=== PATIENT | male | born 1960 | race Caucasian/White ===

== ENCOUNTER 2018-05-22 08:03 | Inpatient (IN) ==
[2018-05-22] MEDS ORDERED: DUONEB (A & A) INH ONE (08:05)
[2018-05-22] MEDS ORDERED: SOLU-MEDROL IV ONE (08:05)
--- NOTE | 2018-05-22 08:05 | PROVIDER DOCUMENTATION ---
HPI-Respiratory General - General Chief Complaint: Shortness of Breath Stated Complaint: RESP DISTRESS Time Seen by Provider: 05/22/18 08:05 Source: patient, family, EMS Allergies/Adverse Reactions: Patient Allergies Allergy/AdvReac Type Severity Reaction Status Date / Time No Known Allergies Allergy Verified 05/22/18 08:33 Home Medications: Home Medication List Medication Instructions Recorded Confirmed Last Taken Type Benztropine [Cogentin] 1 mg PO DAILY 05/22/18 05/22/18 Unknown History Budesonide/Formoterol Fumarate 10.2 gm IH BID 05/22/18 05/22/18 Unknown History [Symbicort 160-4.5 Mcg Inhaler] Furosemide [Lasix] 20 mg PO DAILY 05/22/18 05/22/18 Unknown History Hydrocodone/Acetaminophen [[place] 1 each PO PRN PRN 05/22/18 05/22/18 Unknown History 5-325 Tablet] Iron Carbonyl/Ascorbic Acid 1 each PO DAILY 05/22/18 05/22/18 Unknown History [Icar-C] Losartan Potassium [Cozaar] 25 mg PO DAILY 05/22/18 05/22/18 Unknown History Multivitamin/Iron/Folic Acid 1 each PO DAILY 05/22/18 05/22/18 Unknown History [Centrum Adults Tablet] Olanzapine [Zyprexa] 20 mg PO DAILY 05/22/18 05/22/18 Unknown History Omeprazole [Prilosec] 20 mg PO BID 05/22/18 05/22/18 Unknown History Prednisone 5 mg PO DAILY 05/22/18 05/22/18 Unknown History ROSUVAstatin [Crestor] 20 mg PO DAILY 05/22/18 05/22/18 Unknown History Sucralfate [Carafate] 1 gm PO 4XDAY 05/22/18 05/22/18 Unknown History Tamsulosin [Flomax] 0.4 mg PO BID 05/22/18 05/22/18 Unknown History Tiotropium [place] Inhaler 1 puff INH RTDAILY 05/22/18 05/22/18 Unknown History [Spiriva] - History of Present Illness-Resp Nature of Presenting Problem: Patient has had URI for about 1 week, this morning was awakened from sleep with sudden onset of SOB. Patient admitted for 5 weeks for COPD exacerbation and pneumothorax, then spen 1 month in rehab in [place]. Denies fever/chills/n/v Quality of Pain: reports: none Severity in ED: reports: severe Onset/Duration: reports: just prior to arrival Timing: reports: still present, constant Context: reports: multiple patients with similar complaints, recent URI Exposure: reports: illness exposure Cough Quality/Degree: reports: moderate, productive cough, sputum Current Respiratory Medication Therapy: Initiated A/A rotacaps, Initiated other (home O2 2L) Modifying Factors: improves with: oxygen, rest, sitting upright. worse with: exertion, coughing, deep breath, lying down Associated Symptoms: reports: cough, dizziness, hyperventilating, short of breath, sore throat, sweaty, wheezing Similar Symptoms Previously?: No Recently seen or treated by another doctor?: No Review of Systems - Adult - REVIEW OF SYSTEMS - ADULT Constitutional: reports: no symptoms reported Eyes: reports: no symptoms reported Ears, Nose, Mouth & Throat: reports: no symptoms reported Cardiovascular: reports: no symptoms reported Respiratory: reports: see HPI, chronic cough, cough, dyspnea on exertion, excessive sputum production, shortness of breath, wheezing. denies: hemoptysis , pleurisy Gastrointestinal: reports: no symptoms reported Genitourinary: reports: no symptoms reported Musculoskeletal: reports: no symptoms reported Integumentary: reports: no symptoms reported Neurological: reports: no symptoms reported Psychiatric: reports: no symptoms reported Endocrine: reports: no symptoms reported Hematologic/Lymphatic: reports: no symptoms reported Allergic/Immunologic: reports: no symptoms reported All Other Systems: Reviewed and Negative Past History - Adult - PAST MEDICAL HISTORY-ADULT Review of Records: reports: Old Records Reviewed, Nursing Assessment Review, Medications Reviewed, Social history reviewed & non-contributory. Major Childhood Illnesses: reports: denies history Cardiovascular: reports: denies history Respiratory: reports: denies history Gastrointestinal: reports: denies history Obstetrical/Gynecological: reports: denies history Genitourinary: reports: denies history Musculoskeletal: reports: denies history Neurological: reports: denies history Endocrine/Immune: reports: denies history Other Conditions: reports: denies history - PRIOR SURGERIES/PROCEDURES Surgical/Procedure History: reports: reviewed, not pertinent - IMMUNIZATION STATUS Childhood Immunizations: See Nurse Assessment Flu Vaccine: See Nurse Assessment - FAMILY HISTORY Family History: reviewed, not pertinent - SOCIAL HISTORY Smoking: quit greater than 1 year, secondhand ( smokes, but "not in house") Substance Use: none/never Alcohol Use Frequency: rarely Living Situation: family Physical Exam-General - PHYSICAL EXAM-ADULT Initial Vital Signs Reviewed: Yes - CONSTITUTIONAL General Appearance: severe distress, obese, slow to respond - EYES Eyes: PERRL/EOMI, pink conjunctivae - HEAD, EARS, NOSE, MOUTH & THROAT HENMT: normocephalic/atraumatic, moist mucous membranes, normal ENT inspection - NECK Neck: non-tender, full range of motion, supple, normal inspection - RESPIRATORY Respiratory: chest non-tender, respiratory distress, decreased breath sounds, accessory muscle use, rhonchi, wheezing, dull on percussion - CARDIOVASCULAR Cardiovascular: normal peripheral pulses, no edema, no gallop, no JVD, no murmur , tachycardia - GASTROINTESTINAL (ABDOMEN) Abdominal Exam: normal bowel sounds, non tender, soft - LYMPHATIC Lymphatic: no adenopathy - MUSCULOSKELETAL Back Exam: normal inspection Extremity: normal range of motion, non-tender, normal inspection - SKIN Integumentary: normal turgor, warm/dry, mottled - NEUROLOGIC 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, grossly normal, no motor/sensory deficits - PSYCHIATRIC Psych/Mental Status: normal mood/affect, normal thought content, normal thought process, oriented x 3, anxious Progress - PLAN OF CARE/RESULTS Progress/Plan/Lab Results: Vital Signs - 8 hr 05/22/18 08:29 05/22/18 08:32 05/22/18 09:00 Temperature 101.9 F H Pulse Rate 154 H 151 H 141 H Respiratory Rate 28 H 20 33 H Blood Pressure 91/70 96/63 O2 Sat by Pulse Oximetry 97 98 100 05/22/18 09:03 05/22/18 09:08 05/22/18 09:17 Temperature Pulse Rate 145 H 151 H 133 H Respiratory Rate 32 H 38 H 34 H Blood Pressure 105/78 94/75 O2 Sat by Pulse Oximetry 100 100 99 05/22/18 09:32 05/22/18 09:47 05/22/18 10:00 Temperature Pulse Rate 129 H 121 H 117 H Respiratory Rate 28 H 28 H 28 H Blood Pressure 120/76 106/79 O2 Sat by Pulse Oximetry 98 100 100 05/22/18 10:02 Temperature Pulse Rate 118 H Respiratory Rate 24 Blood Pressure 130/80 O2 Sat by Pulse Oximetry 100 05/22/18 08:23 Influenza Screen - Final Nasopharyngeal Laboratory Results - last 24 hr 05/22/18 05/22/18 05/22/18 08:09 08:09 08:09 PT INR PTT (Actin FS) D-Dimer, Quantitative Specimen Type Sample Site pH pCO2 pO2 HCO3 Base Excess Oxyhemoglobin ABG O2 Sat (Calculated) ABG O2 Saturation ABG Carboxyhemoglobin ABG Methemoglobin Rayo Test A-a O2 Difference Total Hemoglobin Lactate Blood Gas Modality Spontaneous Rate FiO2 % Inspiratory BiPAP Expiratory BiPAP Sodium 137 Potassium 4.8 Chloride 95 L Carbon Dioxide 21 L Anion Gap 21 BUN 13 Creatinine 1.4 H Estimated GFR/1.73 m2 52 BUN/Creatinine Ratio 9 Glucose 221 H Calculated Osmolality 281 Calcium 9.2 Magnesium 1.5 Total Bilirubin 0.31 AST 22 ALT 16 Alkaline Phosphatase 106 Troponin T [id number] Pept 254 H Total Protein 6.5 Albumin 4.6 Globulin 1.9 Albumin/Globulin Ratio 2.4 Plasma Lactate 5.2 H 05/22/18 05/22/18 05/22/18 08:09 08:09 08:09 PT 11.9 INR 0.81 PTT (Actin FS) 29.8 D-Dimer, Quantitative 2.25 H Specimen Type Sample Site pH pCO2 pO2 HCO3 Base Excess Oxyhemoglobin ABG O2 Sat (Calculated) ABG O2 Saturation ABG Carboxyhemoglobin ABG Methemoglobin Rayo Test A-a O2 Difference Total Hemoglobin Lactate Blood Gas Modality Spontaneous Rate FiO2 % Inspiratory BiPAP Expiratory BiPAP Sodium Potassium Chloride Carbon Dioxide Anion Gap BUN Creatinine Estimated GFR/1.73 m2 BUN/Creatinine Ratio Glucose Calculated Osmolality Calcium Magnesium Total Bilirubin AST ALT Alkaline Phosphatase Troponin T 0.070 [id number]-Qbtjmapltcm Pept Total Protein Albumin Globulin Albumin/Globulin Ratio Plasma Lactate 05/22/18 08:35 PT INR PTT (Actin FS) D-Dimer, Quantitative Specimen Type ARTERIAL Sample Site R BRACHIAL pH 7.35 pCO2 37 pO2 83 HCO3 21.3 Base Excess -4.6 L Oxyhemoglobin 95.3 ABG O2 Sat (Calculated) 21.6 ABG O2 Saturation 97.7 ABG Carboxyhemoglobin 1.60 ABG Methemoglobin 0.9 Rayo Test NO A-a O2 Difference 584.0 Total Hemoglobin 16.1 Lactate 5.30 H* Blood Gas Modality BI PAP Spontaneous Rate 20 FiO2 % 100.0 Inspiratory BiPAP 18.0 Expiratory BiPAP 6.0 Sodium Potassium Chloride Carbon Dioxide Anion Gap BUN Creatinine Estimated GFR/1.73 m2 BUN/Creatinine Ratio Glucose Calculated Osmolality Calcium Magnesium Total Bilirubin AST ALT Alkaline Phosphatase Troponin T [id number]-S-Wznfnbtwmae Pept Total Protein Albumin Globulin Albumin/Globulin Ratio Plasma Lactate Orders Category Date Time Status Admit - [facility] Routine AdmDCTranf 05/22/18 10:07 Active Activity - Strict Bedrest ORDERED Care 05/22/18 10:07 Active Elevate Head of Bed DIRECTED Care 05/22/18 10:07 Active Forrest Cath Insertion ORDERED Care 05/22/18 08:06 Active Intake and Output-Strict Q 8-HR ASSESS Care 05/22/18 10:07 Active Nursing- Assist w/ IS as order ORDERED Care 05/22/18 10:07 Active Saline Loc NOW Care 05/22/18 08:07 Active Turn, Cough and Deep Breathe Q2HR Care 05/22/18 10:07 Active Vital Signs Order Q1H Care 05/22/18 10:07 Active CHEST-PORTABLE [RAD] Stat Exams 05/22/18 08:08 Completed CTA [CT ANGIOGRM PULMONARY ARTERIES] [CT] Stat Exams 05/22/18 10:01 Ordered ABG [RESP] Routine Lab 05/22/18 08:35 Completed BLOOD CULTURE [BLDCUL] Stat Lab 05/22/18 08:12 Received COMPREHENSIVE METABOLIC PANEL [CHEM] Stat Lab 05/22/18 08:09 Completed D-DIMER [COAG] Stat Lab 05/22/18 08:09 Completed INFLUENZA SCREEN A/B Stat Lab 05/22/18 08:23 Completed LACTATE, PLASMA [CHEM] Stat Lab 05/22/18 08:09 Completed LACTATE, PLASMA [CHEM] Stat Lab 05/22/18 11:00 Uncollected MAGNESIUM [CHEM] Stat Lab 05/22/18 08:09 Completed PRO B-NATRIURETIC PEPTIDE Stat Lab 05/22/18 08:09 Completed PROTIME WITH INR [COAG] Stat Lab 05/22/18 08:09 Completed PTT [COAG] Stat Lab 05/22/18 08:09 Completed TROPONIN T Stat Lab 05/22/18 08:09 Completed URINALYSIS W/POSS RFLX CULT [URINALYSIS] Stat Lab 05/22/18 08:07 Uncollected 0.9% Sodium Chloride Inj [Ns] 1,000 ml Med 05/22/18 08:06 Discontinued IV 999 mls/hr 0.9% Sodium Chloride Inj [Ns] 1,000 ml Med 05/22/18 08:51 Discontinued IV 999 mls/hr 0.9% Sodium Chloride Inj [Ns] 500 ml Med 05/22/18 08:51 Discontinued IV 999 mls/hr Acetaminophen [Tylenol] Med 05/22/18 10:07 Discontinued 650 mg MS NOW ONE Albuterol 2.5MG/Ipratrop 0.5MG [Duoneb (A & A)] Med 05/22/18 08:05 Discontinued 9 ml INH NOW ONE Levofloxacin 500 mg/D5w [Levaquin 500 mg/D5w] Med 05/22/18 08:30 Active 500 mg in 100 ml IV Q24H Lorazepam [Ativan] Med 05/22/18 08:06 Discontinued 0.5 mg IV NOW ONE Methylprednisolone Sod Succ [Solu-Medrol] Med 05/22/18 08:05 Discontinued 125 mg IV NOW ONE Piperacillin/Tazobactam [Zosyn] 3.375 gm Med 05/22/18 08:28 Discontinued 0.9% Sodium Chloride Inj [Ns] 50 ml IV NOW Vancomycin 1 gm/Ns Med 05/22/18 08:28 Discontinued 1 gm in 250 ml IV NOW Aerosol Treatments Routine Oth 05/22/18 08:06 Completed Aerosol Treatments Routine Ot 05/22/18 10:07 Active Aerosol Treatments Stat Oth 05/22/18 08:06 Completed BIPAP Stat Oth 05/22/18 08:07 Active Incentive Spirometer Routine Oth 05/22/18 10:07 Active Oxygen Device Routine Oth 05/22/18 10:07 Active Pulse Oximetry Routine Oth 05/22/18 10:07 Active EKG [EKG] Stat Ther 05/22/18 08:07 Draft Transfer/Admit Order [TRANSFER] Routine Transfer 05/22/18 10:06 Ordered Result Diagrams: 05/22/18 08:09 - REASSESSMENT Reassessment #1 Time Reassessed: 10:19 Status: improving (Patient placed on bipap, is septic, 30ml/kg bolus done. Appropriate antibiotics given. Given also 3 duonebs, solu-medrol, small dose of ativan.) - CONSULTS/PCP/HOSPITALIST Notification #1 *Consult/PCP/Hospitalist*: AJITH Mullen Time Discussed: 10:20 (admit to [facility]?) Consult Disposition: Will see in ED Departure - Departure Date of Disposition Decision: 05/22/18 Time of Disposition Decision: 10:06 DIAGNOSIS: Respiratory distress, COPD with exacerbation RLL pneumonia Qualifiers: Pneumonia type: due to unspecified organism Qualified Code(s): J18.1 - Lobar pneumonia, unspecified organism Disposition: ADMITTED INPATIENT 09 Certified Medical Emergency: Emergent Condition: Fair Referrals and Follow-Ups: Levi Martinez Jr, MD [Primary Care Provider] - - Critical Care Note This patient required my direct & personal management of CC.: Yes Total Time (mins): 50 Critical Care Statement: This patient required my direct personal management to treat or rule out processes, the absence of which, could potentiallly result in sudden, clinically significant life or limb threatening deterioration. Attestation - Physician/ JOCELIN Attestation Patient care was provided by Advanced Practice Provider:: No The physician spent face to face time with patient:: Yes Advanced Practice Provider documentation review:: Supervising physician onsite and consulted in the evaluation and care of this patient. The physician did have a face to face encounter with the patient.
[2018-05-22] MEDS ORDERED: NS 1,000 ML IV ONE ×2 (08:06→08:51)
[2018-05-22] MEDS ORDERED: ATIVAN IV ONE (08:06)
--- NOTE | 2018-05-22 08:27 | Diag Imaging Result Doc PS360 ---
EXAM: CHEST-PORTABLE HISTORY: sob TECHNIQUE: Chest single view COMPARISON: 02/03/2018 FINDINGS: The lungs are well expanded. There are infiltrates in the lower lungs, right greater than left. No cardiomegaly. No vascular distention. Questionable trace right pleural fluid. Old injury to the right clavicle. Interval removal of the right-sided PICC line. IMPRESSION: Basilar pneumonia Electronically signed by Juan Aguilar 05/22/2018 8:25 AM
[2018-05-22] MEDS ORDERED: ZOSYN 3.375 GM in NS 50 ML IV ONE (08:28)
[2018-05-22] MEDS ORDERED: VANCOMYCIN 1 GM/NS 1 GM/250 ML IVPB IV ONE (08:28)
--- NOTE | 2018-05-22 08:29 | EKG Report ---
Test Performed on : 05/22/2018 08:13:31 AM Test Reason : SOB Blood Pressure : / mmHG Vent. Rate : 158 BPM Atrial Rate : 144 BPM P-R Int : 000 ms QRS Dur : 074 ms QT Int : 244 ms P-R-T Axes : 035 080 001 degrees QTc Int : 395 ms Undetermined rhythm Nonspecific ST abnormality Abnormal ECG When compared with ECG of 18-JAN-2018 07:27, Current undetermined rhythm precludes rhythm comparison, needs review Unconfirmed Result
[2018-05-22 08:37] LABS: INR 0.81; PROTIME 11.9 Seconds (11.0-16.0); PTT 29.8 Seconds (22.3-41.8)
[2018-05-22 08:42] LABS: ALLEN TEST NO; BE -4.6 mmoll (-3.0-3.0); BLOOD TYPE ARTERIAL; HCO3-(ACT) 21.3 mmoll (20.0-26.0); METHB 0.9 % (0.0-1.5); O2(CT) 21.6 mL/dL (15.0-23.0); O2HB 95.3 % (95.0-99.0); PCO2(98.6) 37 mmHg (35-45); PO2(98.6) 83 mmHg (60-100); SAMPLE BLOOD; SAO2 97.7 % (95.0-100.0); SRATE 20 BPM; THB 16.1 g/dL (11.5-17.4); pH(98.6) 7.35 (7.35-7.45)
[2018-05-22 08:45] LABS: ALB/GLOB RATIO 2.4; ALBUMIN 4.6 g/dL (3.5-5.0); CALCIUM 9.2 mg/dL (8.8-10.2); CREATININE 1.4 mg/dL (0.7-1.2); MAGNESIUM 1.5 mg/dL (1.5-2.7); POTASSIUM 4.8 mmol/L (3.5-5.1); TOTAL BILIRUBIN 0.31 mg/dL (0.20-1.00); TOTAL PROTEIN 6.5 g/dL (6.3-8.3)
[2018-05-22 08:51] LABS: MODALITY BI PAP
[2018-05-22] MEDS ORDERED: NS 500 ML IV ONE (08:51)
[2018-05-22] MEDS ORDERED: TYLENOL PR ONE (10:07)
--- NOTE | 2018-05-22 10:15 | ED EKG INTERP ---
This chart was entered by Mary Kate Avilez Scribe, acting as scribe for Juan J Malik MD. EKG Interpretation - EKG Time of EKG reading by physician:: 08:13 EKG Read and Signed by:: Juan J Malik Rate: 158 Rhythm: sinus tachycardia ST Wave: non-specific ST changes Attestation - Physician/ JOCELIN Attestation Patient care was provided by Advanced Practice Provider:: No The physician spent face to face time with patient:: Yes Advanced Practice Provider documentation review:: Supervising physician onsite and consulted in the evaluation and care of this patient. The physician did have a face to face encounter with the patient. This chart was documented by the indicated scribe, (Mary Kate Avilez Scribe) and accurately reflects the services I performed and decisions made by King laws Kent A., MD, as attested by the provider's signature.
[2018-05-22] MEDS ORDERED: XOPENEX NEB INH PRN (10:22)
[2018-05-22] MEDS ORDERED: XOPENEX NEB ONE (10:33)
[2018-05-22] MEDS: XOPENEX NEB INH SCH ×4 (11:08→23:40)
[2018-05-22] MEDS: LEVAQUIN 500 MG/D5W 500 MG/100 ML IVPB IV SCH (11:11)
[2018-05-22] MEDS: NS 1,000 ML IV SCH ×2 (11:11→19:58)
[2018-05-22] MEDS: PROTONIX IV SCH (11:11)
--- NOTE | 2018-05-22 12:04 | SEPSIS: TISSUE PERFUSION ASSMT ---
Sepsis: Tissue Perfusion Assmt - Physical Exam Assessment Date: 05/22/18 Time Assessment Initialized: 12:03 Vital Signs: Last Vital Signs Temp 101.9 F H 05/22/18 08:29 Pulse 118 H 05/22/18 10:18 Resp 21 05/22/18 10:18 BP 118/86 05/22/18 10:18 Pulse Ox 99 05/22/18 10:18 Height 5 ft 6 in Weight 80.739 kg Lung Sounds:: diminished Heart Sounds:: Regular Capillary Refill Time: Less Than 2 Seconds Peripheral Pulse Evaluation:: radial (R): 2+, radial (L): 2+ Skin Exam:: pink - Impression Impression:: Tissue Perfusion Adequate - Plan Plan:: See Orders (will d/c BiPap)
--- NOTE | 2018-05-22 12:24 | Diag Imaging Result Doc PS360 ---
EXAM: CT ANGIOGRM PULMONARY ARTERIES INDICATION: respiratory distress TECHNIQUE: This exam was performed using automated exposure control, adjustment of mA or kV according to patient size, and/or use of iterative reconstruction technique. Thin section axial images and 3-D MIPS were obtained. COMPARISON: 01/03/2018 FINDINGS: There is no evidence of pulmonary embolism. There is mild aortic atherosclerotic disease. There is no evidence of aortic aneurysm or dissection. There are a few mildly prominent mediastinal and right hilar lymph nodes that are probably reactive. There are faint calcifications associated with a few subcarinal lymph nodes suggesting prior granulomatous disease. There is trace pericardial fluid. There is no cardiomegaly. There are stable emphysematous changes. There is airspace infiltrate in the right lower lung zone including the inferior right upper lobe and right lower lobe. This is worst at the right middle lobe where the consolidation is very dense. Atelectasis may also be contributing to the density in the right middle lobe. There is mild scarring in the lingula and left lung base. There is no significant pleural fluid and there is no pneumothorax. There is a stable calcified granuloma at the posterior aspect of the right lower lobe. IMPRESSION: 1.COPD changes. 2.Airspace consolidation involving the right lower lung zone that is most severe in the right middle lobe indicating pneumonia. 3.No evidence of pulmonary embolism. 4.Other incidental/nonacute findings detailed above. Electronically signed by Mo May 05/22/2018 12:22 PM
[2018-05-22 13:02] LABS: CALCIUM 7.9 mg/dL (8.8-10.2); CREATININE 1.5 mg/dL (0.7-1.2); POTASSIUM 5.1 mmol/L (3.5-5.1)
[2018-05-22] MEDS ORDERED: SOLU-MEDROL IV SCH (13:15)
[2018-05-22 13:24] LABS: URINE SOURCE CLEAN CATCH
[2018-05-22 13:29] LABS: BILIRUBIN URINE NEGATIVE (NEGATIVE); BLOOD URINE NEGATIVE (NEGATIVE); COLOR YELLOW; GLUCOSE URINE NEGATIVE (NEGATIVE); KETONE URINE NEGATIVE (NEGATIVE); LEUKOCYTES URINE NEGATIVE (NEGATIVE); NITRITE URINE NEGATIVE (NEGATIVE); PH URINE 6.5; PROTEIN URINE 50 mg/dL (NEGATIVE); SP GRAVITY URINE 1.045; TURBIDITY URINE CLEAR (CLEAR); UR EPITHELIAL CELLS >10 /HPF (<10); URINE BACTERIA NEGATIVE /HPF; URINE RBC <10 /HPF (<10); URINE WBC <10 /HPF (<10); UROBILINOGEN URINE NORMAL (NORMAL)
[2018-05-22 13:31] LABS: ALLEN TEST YES; BE -4.8 mmoll (-3.0-3.0); BLOOD TYPE ARTERIAL; HCO3-(ACT) 21.2 mmoll (20.0-26.0); METHB 1.6 % (0.0-1.5); MODALITY BI PAP; O2(CT) 18.7 mL/dL (15.0-23.0); O2HB 96.3 % (95.0-99.0); PCO2(98.6) 38 mmHg (35-45); PO2(98.6) 168 mmHg (60-100); SAMPLE BLOOD; SAO2 99.3 % (95.0-100.0); SRATE 20 BPM; THB 13.6 g/dL (11.5-17.4); pH(98.6) 7.34 (7.35-7.45)
--- NOTE | 2018-05-22 13:31 | HISTORY AND PHYSICAL ---
PRIMARY CARE PHYSICIAN: Levi Martinez Jr. CHIEF COMPLAINT: Dyspnea. HISTORY OF PRESENT ILLNESS: Mr. Crowe is a 58-year-old, male, who was most recently admitted to our service in December of last year. At that time, he had spontaneous pneumothorax with acute respiratory failure requiring intubation. He also has a history of COPD, type 2 diabetes and hypertension. He has been in his normal state of health up until this morning when he woke up with acute shortness of breath - enough to bring him into the ER. He states that yesterday there were no issues. No real acute shortness of breath. This morning he came to the ER for evaluation. He was noted to be febrile, tachycardic and hypoxic. He was subsequently placed on BiPAP. Chest x-ray revealed a right middle and lower lobe pneumonia. Lactic acid was also noted to be elevated, giving him criteria for sepsis. A subsequent CT thorax revealed right lower and right middle lobe pneumonia. As such, he is going to be admitted for sepsis and pneumonia. PAST MEDICAL HISTORY: 1. History of respiratory failure secondary to spontaneous pneumothorax requiring intubation. 2. COPD. 3. Hypertension. 4. Type 2 diabetes. 5. Hyperlipidemia. PAST SURGICAL HISTORY: None. SOCIAL HISTORY: He quit in December. He has a long and extensive smoking history. He denies alcohol or drug use. He is . His is currently not at the bedside. FAMILY HISTORY: Noncontributory. REVIEW OF SYSTEMS: A 14 point review of systems obtained and found to be negative with the exception of the HPI. PHYSICAL EXAM: VITAL SIGNS: Blood pressure is 97/69, heart rate is 100, respiratory rate is 23. O2 saturation 100% on BiPAP. Temperature is 99.1 degrees Fahrenheit. GENERAL: This chronically ill and overweight appearing 58-year-old, male, lying in hospital bed in [id number] respiratory distress. NEUROLOGIC: He is oriented. No focal deficits. HEENT: Head: Normocephalic and atraumatic. Pupils are equal, round and reactive to light. Oral mucosa is dry. NECK: Trachea is midline. CHEST: Very little air movement bilaterally with crackles over the right middle and lower lobes. CARDIOVASCULAR: Tachy and regular. S1, S2 is noted. GASTROINTESTINAL: Soft, nontender, nondistended. Bowel sounds active. EXTREMITIES: No edema. Pulses 1+ bilaterally. DIAGNOSTIC DATA: 1. Chest x-ray shows basilar pneumonia. 2. CTA of the chest is negative for PE. Right middle and lower lung pneumonia. COPD changes were also noted. 3. CBC is pending due to hemolysis. 4. PT 11.9. INR 0.81. D-dimer 2.25. 5. ABG on BiPAP: pH 7.35, CO2 37, O2 83, bicarb 21.3. Lactic acid 5.3. 6. Sodium 137, potassium 4.8, chloride 95, CO2 21. Anion gap 21. BUN 13, creatinine 1.4, glucose 221. 7. LFTs normal. Troponin negative. ProBNP 254. Lactic acid 5.2. ASSESSMENT AND PLAN: 1. Acute hypoxic respiratory failure: Secondary to pneumonia. He is on BiPAP. We will continue with aggressive pulmonary toilet, breathing treatments, broad-spectrum antibiotics with MRSA overage. We will order sputum cultures. Consult Pulmonology. Check daily chest x-rays. Repeat ABGs. 2. Sepsis secondary to pneumonia: He is becoming slightly hypotensive. Lactic acid repeat is pending. We will continue with fluid resuscitation as necessary. Add pressors if needed. Continue to trend his lactic acid and follow culture data of the urine, blood and sputum. 3. Mild acute kidney injury: Continue IV fluids. Avoid nephrotoxins. Monitor response. 4. Diabetes mellitus. Will add sliding-scale insulin, PBS. Check hemoglobin A1c. 5. Deep venous thrombosis prophylaxis. We will add Lovenox. Further recommendations to follow. Dictated by AJITH Camara for Edwar Morin MD Patient seen and examined by me face to face, all the laboratory, vitals signs and images were reviewed, Patient came in today due to respiratory failure, he has a history of COPD, he is hypoxemic as well, he has been placed on steroids, breathing treatment, O2, antibiotics, and currently is on the BiPAP machine, his is at the bedside, images showed right lower lobe pneumonia, pulmonary department will be on board, upon examination this patient is alert but he looks tired, decrease breath sounds mostly on the right base with rhonchi, I agree with the EP TECHNOLOGIST's assessment and plan, Edwar Murcia. cc: AJITH Camara MD Levi Cale Martinez, Jr, MD [facility]
[2018-05-22] MEDS: LOVENOX SUBQ SCH (13:33)
[2018-05-22] MEDS: SOLU-MEDROL IV SCH ×2 (13:36→22:00)
[2018-05-22] MEDS: MAXIPIME 2 GM in NS 100 ML IV SCH (13:54)
[2018-05-22] MEDS: ZYVOX 600 MG/D5W 600 MG/300 ML IVPB IV SCH (15:18)
[2018-05-22] MEDS: HUMULIN R SUBQ SCH ×2 (16:46→21:32)
[2018-05-22 18:30] LABS: BASO# 0.01 X1000 (0.0-0.2); HEMATOCRIT 40.2 % (42.0-52.0); HEMOGLOBIN 12.5 g/dL (14.0-18.0); IMM GRAN# 0.06 X1000 (0.0-0.04); IMM GRAN% 0.3 % (0.0-0.5); LYMPH# 0.48 X1000 (1.2-3.4); LYMPH% 2.3 % (20.5-51.1); MCH 28.4 PG (27-31); MCHC 31.1 g/dL (33-37); MCV 91.4 FL (81-99); MONO# 0.59 X1000 (0.11-0.59); MONO% 2.9 % (1.7-9.3); MPV 11.8 FL (7.4-10.4); NEUT# 19.29 X1000 (1.4-6.5); NEUT% 94.5 % (42.2-75.2); PLT 177 X1000 (130-400); RDW 14.9 % (11.5-14.5); WBC 20.43 X1000 (4.8-10.8)
[2018-05-22] MEDS ORDERED: NS 1,000 ML ONE (19:57)
--- NOTE | 2018-05-23 00:52 | PULMONOLOGY CONSULTATION ---
DATE: 05/22/2018 REQUESTING PHYSICIAN: Edwar Morin MD. REASON FOR CONSULTATION: Pneumonia and possible sepsis. HISTORY OF PRESENT ILLNESS: Mr. Crowe is a 58-year-old white male with severe COPD (stopped smoking last fall), prior admission to the hospital with spontaneous pneumothorax, who received amoxicillin in early April for cough and sputum production. He did improve, but over the last several days, his shortness of breath has increased. He is unclear if he has had any fevers. The patient presented to the emergency room with a temperature of 101.9 degrees. Chest x-ray revealed dense right basilar infiltrate with possible infiltrate on the left. He underwent a CT pulmonary angiogram,which reveals COPD and pneumonia, predominantly in the right middle lobe but also in the right lower lobe. No evidence of pulmonary emboli was identified. The patient's blood pressure has been marginal. PAST MEDICAL HISTORY/PROBLEM LIST: 1. Severe COPD with chronic hypoxemic respiratory failure. 2. Obesity. 3. Hypertension. 4. Type 2 diabetes mellitus. 5. Dyslipidemia. 6. Tension pneumothorax, status post chest tube placement in December. SOCIAL HISTORY: Stopped smoking last fall. Denies alcohol use. FAMILY HISTORY: Noncontributory to current presentation. REVIEW OF SYSTEMS: As noted in the HPI and was otherwise negative. PHYSICAL EXAMINATION: General: Physical exam reveals an obese white male who appears older than his stated age, currently on BiPAP ventilation. Vital signs: BP 104/68, heart rate 89, respiratory rate 21, oxygen saturation 100%. HEENT: Pupils are equal and reactive. Oropharynx is clear. Neck: Supple. Chest: Reveals diminished breath sounds, right base, with some egophony. Cardiac: S1, S2. Abdomen: Obese and soft. Extremities: Reveal trace edema. LABORATORIES: CBC not available. It was pending earlier but still not available for review. Arterial blood gas: pH 7.34, pCO2 of 38, pO2 of 168 on 50% FiO2. Lactate 3.9. Sodium 139, potassium 5.1, chloride 102, bicarbonate 23, BUN 14, creatinine 1.5. Blood cultures are pending. IMPRESSION: A 58-year-old with chronic obstructive pulmonary disease, community-acquired pneumonia, acute hypoxemic respiratory failure, lactic acidosis, acute renal insufficiency and subsequent exposure to contrast dye. The patient's pulmonary status is marginal. He is at risk for progressive respiratory decline as well as acute renal failure. RECOMMENDATION: 1. Agree with broad spectrum antibiotics. 2. Continue BiPAP. If he fails this modality, he may require intubation. 3. Continue IV fluids. 4. Anticipate transfer to the intensive care unit when a bed is available. 5. Prognosis is guarded. cc: Benny Aguillon MD
[2018-05-23] MEDS: MAXIPIME 2 GM in NS 100 ML IV SCH ×2 (02:45→17:00)
[2018-05-23] MEDS: ZYVOX 600 MG/D5W 600 MG/300 ML IVPB IV SCH ×2 (02:48→17:30)
[2018-05-23] MEDS: XOPENEX NEB INH SCH ×6 (03:42→23:31)
[2018-05-23] MEDS: NS 1,000 ML IV SCH ×3 (04:00→18:03)
[2018-05-23 05:34] LABS: ALLEN TEST YES; BE -5.4 mmoll (-3.0-3.0); BLOOD TYPE ARTERIAL; HCO3-(ACT) 20.7 mmoll (20.0-26.0); METHB 1.3 % (0.0-1.5); O2(CT) 15.8 mL/dL (15.0-23.0); O2HB 96.5 % (95.0-99.0); PCO2(98.6) 33 mmHg (35-45); PO2(98.6) 118 mmHg (60-100); SAMPLE BLOOD; SAO2 99.7 % (95.0-100.0); THB 11.5 g/dL (11.5-17.4); pH(98.6) 7.37 (7.35-7.45)
[2018-05-23 05:35] LABS: MODALITY BI PAP
[2018-05-23] MEDS: SOLU-MEDROL IV SCH ×3 (06:20→22:56)
[2018-05-23 06:38] LABS: BASO# 0.01 X1000 (0.0-0.2); HEMATOCRIT 35.8 % (42.0-52.0); HEMOGLOBIN 11.3 g/dL (14.0-18.0); IMM GRAN# 0.06 X1000 (0.0-0.04); IMM GRAN% 0.3 % (0.0-0.5); LYMPH# 0.74 X1000 (1.2-3.4); LYMPH% 3.6 % (20.5-51.1); MCH 28.5 PG (27-31); MCHC 31.6 g/dL (33-37); MCV 90.2 FL (81-99); MONO# 0.67 X1000 (0.11-0.59); MONO% 3.2 % (1.7-9.3); MPV 11.6 FL (7.4-10.4); NEUT# 19.31 X1000 (1.4-6.5); NEUT% 92.9 % (42.2-75.2); PLT 171 X1000 (130-400); RBC 3.97 XMIL (4.7-6.1); RDW 14.9 % (11.5-14.5); WBC 20.79 X1000 (4.8-10.8)
[2018-05-23 06:56] LABS: LYMPHS 6 % (21-51); MONO 2 % (1-9); SEGS 92 % (42-75)
[2018-05-23 06:58] LABS: HEMOGLOBIN A1C 5.9 % (4.8-6.0)
[2018-05-23 07:00] LABS: CALCIUM 8.5 mg/dL (8.8-10.2); CREATININE 1.3 mg/dL (0.7-1.2); POTASSIUM 4.4 mmol/L (3.5-5.1)
--- NOTE | 2018-05-23 07:19 | Diag Imaging Result Doc PS360 ---
EXAM: CHEST-PORTABLE INDICATION: pna, resp failure TECHNIQUE: 2 views COMPARISON: 05/22/2018 FINDINGS: Bibasilar consolidations, worse on the right are again noted. The density at the right lung base has slightly increased. This is likely due to increased pleural fluid. No other new consolidations are identified. Cardiac silhouette is stable. IMPRESSION: Increased opacity at the right lung base as described. Electronically signed by Mo May 05/23/2018 7:17 AM
[2018-05-23] MEDS: HUMULIN R SUBQ SCH ×4 (07:32→22:55)
--- NOTE | 2018-05-23 09:41 | PROGRESS NOTE ---
DATE: 05/23/2018 SUBJECTIVE: This patient is still on the BiPAP machine. I will start cycling the BiPAP machine with a nonrebreathing mask or nasal cannula. I will decrease the dose of the steroids since he is not wheezing that much today, actually just fine end-expiratory wheezing. He is not complaining of shortness of breath. He does have a right lower lung pneumonia. Will continue with broad- spectrum antibiotics. OBJECTIVE: Vital Signs: Temperature 97.9 degrees, pulse 85, respiratory rate 17, blood pressure 116/67, oxygen saturation 98% on the BiPAP machine. HEENT: Head normocephalic. No trauma. PERRLA. Neck: Supple. No JVD. No masses. Central trachea. Chest: Decreased breath sounds globally with prolonged expiratory phase. Decreased breath sounds at the right base with end- expiratory wheezing. Rhonchi at the right base as well. Abdomen: Soft, nontender, nondistended. No hepatosplenomegaly. Obese, protuberant. Extremities: No edema. No clubbing. No cyanosis. Neurological: The patient is alert. He is following commands. He is oriented. No focal deficits. LABORATORY DATA: WBC 20.7, hemoglobin 11.3, hematocrit 35.8, platelets 171,000. Sodium 138, potassium 4.4, chloride 105, bicarbonate 19, BUN 18, creatinine 1.3, glucose 216, calcium 8.5, magnesium 1.5. IgG is low at 439. ASSESSMENT AND PLAN: 1. Acute hypoxemic respiratory failure, likely secondary to pneumonia and history of chronic obstructive pulmonary disease. Continue with cycling the BiPAP machine with nasal cannula and/or nonrebreathing mask/Ventimask. Pulmonary Department on board. I think he is getting better. 2. Sepsis secondary to pneumonia, right lower lung pneumonia. Continue with broad-spectrum antibiotics, oxygen supplementation, pulmonary toilet, and breathing treatment. 3. Right lower lobe pneumonia. As above. 4. Mild acute kidney injury. Continue with same management. Avoid nephrotoxic medication. 5. Type 2 diabetes. Continue with sliding scale insulin and patterning blood sugar. His hemoglobin A1c actually is 5.9. Probably the elevated blood sugar is due to steroids. 6. Obesity with a body mass index of 28.7, aware. Diet and exercise has been discussed. 7. Hypogammaglobulinemia. IgG and IgM levels are low. I have requested an evaluation by Infectious Disease Department. Likely he will need to get an immunoglobulin treatment, IVIg. 8. Lactic acidosis. Continue with the same management. cc: Edwar Morin MD
[2018-05-23] MEDS: LEVAQUIN 500 MG/D5W 500 MG/100 ML IVPB IV SCH (09:59)
[2018-05-23] MEDS: SODIUM CHLORIDE 0.9% INJ SCH (11:15)
[2018-05-23] MEDS: PROTONIX IV SCH (11:15)
[2018-05-23] MEDS ORDERED: GAMUNEX-C 10% IV ONE (12:00)
--- NOTE | 2018-05-23 12:02 | INFECTIOUS DISEASE CONSULT REP ---
DATE: 05/23/2018 CONCLUSION: The patient is admitted the hospital with right lower lobe pneumonia. He also has an immunoglobulin deficiency. RECOMMENDATIONS: I agree with treating the patient with Zyvox and Levaquin. I am planning on giving the patient an immunoglobulin infusion. I have ordered also a sputum for Gram stain and culture, as well as I plan to give the patient an immunoglobulin infusion. DISCUSSION: The patient approximately 2 days ago had the sudden onset of increasing dyspnea and fever. He has not brought up much sputum. He has not had shaking chills. His CBC shows a white count of 20,790, hemoglobin 11.3, and platelet count 171,000. Blood gases show a pH of 7.37, a PO2 of 118, and a pCO2 of 33. Creatinine is 1.3; GFR is 56. Liver function studies are normal. IgG is 439, IgA is 111. Chest x-ray shows a right lower lobe pneumonia. Swab for influenza is negative. Blood cultures are negative thus far. PAST MEDICAL HISTORY/REVIEW OF SYSTEMS: Eyes and Ears: The patient denies any trouble hearing or seeing. Neck: No stiffness. Respiratory: See present illness. Cardiac: No chest pain or palpitations. Gastrointestinal: No nausea, vomiting, or diarrhea. Genitourinary: No dysuria or flank pain. Bones, Joints, Muscles: No joint swelling or muscle aching. Neurologic: No seizures. No recent loss of motor or sensory function. PREVIOUS HOSPITALIZATIONS AND OPERATIONS: He was admitted with a tension pneumothorax and then developed an aspiration pneumonia. Another time he was admitted because of hypokalemia. MEDICAL DISEASES: Positive for chronic obstructive pulmonary disease; diabetes mellitus, which cleared for a period of time and now it the appears to have returned. The patient also is obese. He has hyperlipidemia, schizophrenia, and hypertension. INFECTIOUS DISEASE HISTORY: Positive for pneumonia. Negative for UTI. FAMILY HISTORY: Positive for diabetes mellitus, hypertension, and cancer. SOCIAL HISTORY: [place] He is . He does not have any pets at home. He stopped smoking cigarettes in December 2017. He does not drink alcoholic beverages or abuse drugs. ALLERGIES: His chart lists no known drug allergies. HOME MEDICATIONS: Include the following: Cogentin, Symbicort inhaler, Lasix, hydrocodone, Cozaar, vitamins, Zyprexa, Prilosec, prednisone, Crestor, Carafate, Flomax, Spiriva. PHYSICAL EXAMINATION: Vital Signs: Temperature is 97.9 degrees, pulse 85, respirations 7, blood pressure 116/67. Height and Weight: The patient is 5 feet 6 inches tall, weighs 178 pounds. General: This is an ill-appearing middle-aged male. He seems to be having acute respiratory distress. Head/Eyes/Ears/Nose/Throat: He can hear my spoken words and see near objects. His sinuses are not tender. His tongue does not have any white patches on it. Neck: No meningismus. Thorax: Patient has increased AP diameter of his chest. Lungs: Clear to auscultation. Cardiovascular: Regular heart rate. Abdomen: Soft and nontender. Neurologic: The patient is awake. He can move his extremities. There is no tremor. His sensation is intact to touch. His memory as regarding his medical history seemed to be reduced. Integument: No rash noted. cc: Jose Cruz Hall MD
[2018-05-23] MEDS: LOVENOX SUBQ SCH (17:00)
[2018-05-23 17:49] LABS: AGAP 14; BUN 20 mg/dL (8-22); CALCIUM 8.7 mg/dL (8.8-10.2); CHLORIDE 103 mmol/L (98-107); COSMO 279; CREATININE 1.1 mg/dL (0.7-1.2); ESTIMATED GFR > 60; GLUCOSE 171 mg/dL (70-104); POTASSIUM 4.1 mmol/L (3.5-5.1); SODIUM 136 mmol/L (136-145); TCO2 19 mmol/L (25-35)
--- NOTE | 2018-05-23 20:44 | PULMONOLOGY PROGRESS NOTE ---
DATE: 05/23/2018 SUBJECTIVE: The patient currently taking a break off of BiPAP. He reports he is "doing okay." OBJECTIVE: Vital Signs: The patient has been afebrile after his 101.9 degrees temperature yesterday morning at 8:29, blood pressure 113/68, heart rate 82, respiratory rate 19, oxygen saturation 97% on nasal cannula. HEENT: Pupils are equal and reactive. Oropharynx is clear. Neck: Supple. Chest: Reveals coarse rhonchi bilaterally with decreased breath sounds in the right base. Cardiac: S1, S2. Abdomen: Obese and soft. Extremities: Without edema. LABORATORIES: Chest x-ray reveals increased density at right lung base. Microbiology reveals no new data. White blood count 20.8 thousand, hemoglobin 11.3, platelet count 171,000. Arterial blood gas: PH 7.37, pCO2 of 33, PO2 of 118. IMPRESSION: A 58-year-old with severe chronic obstructive pulmonary disease, community-acquired pneumonia, acute hypoxemic respiratory failure, acute renal insufficiency. The patient's chest x- ray is slightly worse, but clinically he is marginally improved. RECOMMENDATION: 1. Continue to cycle BiPAP and nasal cannula. 2. Continue antibiotics. 3. Continue bronchial hygiene. 4. Continue critical care monitoring. The patient is at risk for intubation. cc: Benny Aguillon MD
[2018-05-24] MEDS: NS 1,000 ML IV SCH ×4 (00:50→20:57)
[2018-05-24] MEDS: MAXIPIME 2 GM in NS 100 ML IV SCH ×2 (02:01→13:23)
[2018-05-24] MEDS: ZYVOX 600 MG/D5W 600 MG/300 ML IVPB IV SCH ×2 (02:02→14:33)
[2018-05-24] MEDS: XOPENEX NEB INH SCH ×6 (03:00→23:53)
[2018-05-24 05:07] LABS: ALLEN TEST YES; BE -5.9 mmoll (-3.0-3.0); BLOOD TYPE ARTERIAL; HCO3-(ACT) 20.3 mmoll (20.0-26.0); METHB 1.8 % (0.0-1.5); O2(CT) 14.3 mL/dL (15.0-23.0); O2HB 93.6 % (95.0-99.0); PCO2(98.6) 32 mmHg (35-45); PO2(98.6) 73 mmHg (60-100); SAMPLE BLOOD; SAO2 96.6 % (95.0-100.0); THB 10.8 g/dL (11.5-17.4); pH(98.6) 7.37 (7.35-7.45)
[2018-05-24 05:09] LABS: MODALITY CANNULA
[2018-05-24 05:29] LABS: EOS# 0.01 X1000 (0.0-0.7); EOS% 0.1 % (0.0-10.0); HEMATOCRIT 33.5 % (42.0-52.0); HEMOGLOBIN 10.8 g/dL (14.0-18.0); IMM GRAN# 0.05 X1000 (0.0-0.04); IMM GRAN% 0.3 % (0.0-0.5); LYMPH% 2.4 % (20.5-51.1); MCH 28.8 PG (27-31); MCHC 32.2 g/dL (33-37); MCV 89.3 FL (81-99); MONO# 0.55 X1000 (0.11-0.59); MONO% 3.3 % (1.7-9.3); MPV 12.2 FL (7.4-10.4); NEUT# 15.79 X1000 (1.4-6.5); NEUT% 93.9 % (42.2-75.2); PLT 161 X1000 (130-400); RBC 3.75 XMIL (4.7-6.1); RDW 15.2 % (11.5-14.5)
[2018-05-24 05:59] LABS: AGAP 14; BUN 19 mg/dL (8-22); CALCIUM 8.4 mg/dL (8.8-10.2); CHLORIDE 102 mmol/L (98-107); COSMO 278; CREATININE 1.1 mg/dL (0.7-1.2); ESTIMATED GFR > 60; GLUCOSE 239 mg/dL (70-104); POTASSIUM 3.8 mmol/L (3.5-5.1); SODIUM 134 mmol/L (136-145); TCO2 18 mmol/L (25-35)
[2018-05-24] MEDS: HUMULIN R SUBQ SCH ×4 (06:06→20:57)
--- NOTE | 2018-05-24 07:19 | Diag Imaging Result Doc PS360 ---
EXAM: CHEST-PORTABLE 05/24/2018 HISTORY: pna, resp failure TECHNIQUE: AP portable at 0628 COMMENT: The opacification and volume loss in the right middle lobe seen on 05/23/2018 has improved. IMPRESSION: Improved right middle lobe pneumonia. Electronically signed by Benedict Street 05/24/2018 7:16 AM
--- NOTE | 2018-05-24 08:46 | INFECTIOUS DISEASE PROGRESS NO ---
DATE: 05/24/2018 SUBJECTIVE: The patient has a bibasilar pneumonia and an immunoglobulin deficiency. The patient has 1 out of 2 blood cultures positive for coagulase-negative Staph. This is a contaminant and does not require treatment. MEDICATIONS: This is the second day of treatment with a combination of cefepime and Zyvox. OBJECTIVE: Vital Signs: Temperature is 98 degrees, pulse 92, respirations 22, blood pressure 147/103. General: This is an obese, middle-aged male. He does not seem as dyspneic as he did yesterday. Head/eyes/ears/nose/throat: He can hear my spoken words and see near objects. He does not have any white patches on his tongue. Neck: No meningismus. Thorax: The patient has an increased AP diameter of the chest. Lungs: There were distant breath sounds and bibasilar rales. Cardiovascular: Heart rate is regular. Abdomen: Seems somewhat protuberant, but it is soft and nontender. Neurologic: Patient is awake. He can move his extremities. There is no tremor. He is able to talk. DIAGNOSTIC DATA: Chest x-ray shows bibasilar consolidation. CBC shows a white count of 16,800, hemoglobin 10.8 and platelet count 161,000. Blood gases show a pH of 7.37, a pO2 of 73, pCO2 of 32, creatinine is 1.1. GFR is greater than 60. One out of two blood cultures growing coagulase- negative Staph. This is a contaminant, does not need to be treated. Chest x- ray shows bibasilar consolidations. Swab for influenza is negative. ASSESSMENT AND PLAN: Patient has a bibasilar pneumonia. My plan is to continue with cefepime and Zyvox. The patient also has a very low IgG level. I plan to repeat this at least 8 weeks from now to see if the IgG level has improved after getting the IVIG yesterday. If it falls, if it gets low again, then the patient may be a candidate for immunoglobulin therapy on a continuous basis. COMORBIDITIES: The patient has very severe COPD. He also has diabetes mellitus , and he is obese. He also has schizophrenia. cc: Jose Cruz Hall MD [facility]
--- NOTE | 2018-05-24 08:53 | PROGRESS NOTE ---
DATE: 05/24/2018 SUBJECTIVE: This patient seems to be doing better. He is feeling better, and the lab work is better also. WBC decreased from 20 to 16. The acute kidney injury resolved. He is still hyperglycemic, but I believe this is due to steroids. He is still having some wheezing bilaterally. I will continue with the same management. X-ray showed an improvement of the right middle lobe pneumonia. OBJECTIVE: Vital Signs: Temperature 98.6 degrees, pulse 88, respiratory rate 20, blood pressure 132/59, oxygen saturation 96% on 5 liters of nasal cannula. HEENT: Head normocephalic. No trauma. PERRLA. Neck: Supple. No JVD. No masses. Central trachea. Chest: Decreased breath sounds globally with prolonged expiratory phase. Decreased breath sounds at the right base with end expiratory wheezing. Rhonchi at the right base as well. Abdomen: Soft, nontender, nondistended. No hepatosplenomegaly. Obese, protuberant. Extremities: No edema. No clubbing. No cyanosis. Neurological: The patient is alert. He is following commands. He is oriented. No focal deficits. LABORATORY DATA: WBC 16.8, hemoglobin 10.8, hematocrit 33.5, platelets 161,000. Sodium 134, potassium 3.8, chloride 102, bicarbonate 18, BUN 19, creatinine 1.1, glucose 239, calcium 8.4, magnesium 1.6. ASSESSMENT AND PLAN: 1. Acute hypoxemic respiratory failure, likely secondary to pneumonia and history of chronic obstructive pulmonary disease. Continue cycling the BiPAP machine and nasal cannula and/or nonrebreathing mask/Ventimask. Pulmonary Department on board, and I think he is getting better. He is tolerating the nasal cannula. He is not complaining of shortness of breath at this moment. 2. Sepsis secondary to pneumonia, right lower lung pneumonia. Continue with broad-spectrum antibiotics, oxygen supplementation, pulmonary toilet, and breathing treatment. 3. Right lower lobe pneumonia. As above. 4. Mild acute kidney injury, resolved. We will avoid nephrotoxic medications. Yesterday his urine output was low, and we did a bladder scan and found out that he has been retaining urine. After placing the Forrest catheter, he voided more than 1 liter. Surprisingly, he was not complaining of suprapubic pressure or pain. 5. Type 2 diabetes. I will continue with sliding scale insulin and pattern blood sugar. His hemoglobin A1c actually is 5.9, and the elevated blood sugar at this moment is due to steroids. 6. Obesity with a body mass index of 29.6, aware. Diet and exercise have been discussed. 7. Hypogammaglobulinemia. IgG and IgM levels are low. I requested an evaluation by Infectious Disease Department. He received a dose of immunoglobulin. 8. Lactic acidosis. This is getting better. We will continue to monitor. 9. Leukocytosis, likely secondary to the infectious process and probably steroids, improving. cc: Edwar Morin MD
[2018-05-24] MEDS: PROTONIX IV SCH (10:33)
[2018-05-24] MEDS: SOLU-MEDROL IV SCH ×2 (10:34→20:57)
[2018-05-24] MEDS: LOVENOX SUBQ SCH (13:22)
[2018-05-25] MEDS: MAXIPIME 2 GM in NS 100 ML IV SCH ×2 (01:56→16:13)
[2018-05-25] MEDS: ZYVOX 600 MG/D5W 600 MG/300 ML IVPB IV SCH ×2 (01:56→13:57)
--- NOTE | 2018-05-25 02:55 | PULMONOLOGY PROGRESS NOTE ---
DATE: 05/24/2018 SUBJECTIVE: The patient reports he feels a little better. Shortness of breath has diminished. He continues to have a cough, with some sputum production. OBJECTIVE: Vital Signs: The patient has been afebrile for the last 24 hours. Blood pressure 129/66, heart rate 100, respiration rate 20, oxygen saturation 95% on nasal cannula. HEENT: Pupils are equal and reactive. Oropharynx is clear. Neck: Supple. Chest: Reveals coarse rhonchi bilaterally. Cardiac: S1-S2. Abdomen: Soft and obese, and without hepatosplenomegaly. Extremities: Without edema. LABORATORIES: IgG level is low at 439. Sputum culture is pending. White blood count 16.8, hemoglobin 10.8, platelet count 161,000. Chest x-ray reveals some improvement in the right basilar pneumonia. IMPRESSION: A 58-year-old with severe chronic obstructive pulmonary disease, immunoglobulin deficiency, community-acquired pneumonia, acute hypoxemic respiratory failure. The patient has had some clinical improvement. RECOMMENDATIONS: 1. Agree with immunoglobulin replacement. 2. Continue to cycle BiPAP and nasal cannula. 3. Continue antibiotics. 4. Continue bronchial hygiene. 5. Patient appears to be clinically improving. I believe if his improvement continues on this trajectory, he can be transferred to a routine floor tomorrow morning. cc: Benny Aguillon MD
[2018-05-25] MEDS: XOPENEX NEB INH SCH ×5 (03:44→20:13)
[2018-05-25 05:47] LABS: EOS# 0.04 X1000 (0.0-0.7); EOS% 0.4 % (0.0-10.0); HEMATOCRIT 34.6 % (42.0-52.0); HEMOGLOBIN 11.2 g/dL (14.0-18.0); IMM GRAN# 0.04 X1000 (0.0-0.04); IMM GRAN% 0.4 % (0.0-0.5); LYMPH# 0.35 X1000 (1.2-3.4); LYMPH% 3.2 % (20.5-51.1); MCH 28.5 PG (27-31); MCHC 32.4 g/dL (33-37); MONO# 0.45 X1000 (0.11-0.59); MONO% 4.1 % (1.7-9.3); MPV 12.2 FL (7.4-10.4); NEUT# 9.99 X1000 (1.4-6.5); NEUT% 91.9 % (42.2-75.2); PLT 148 X1000 (130-400); RBC 3.93 XMIL (4.7-6.1); RDW 14.9 % (11.5-14.5); WBC 10.87 X1000 (4.8-10.8)
[2018-05-25 05:56] LABS: ALLEN TEST YES; BE -5.1 mmoll (-3.0-3.0); BLOOD TYPE ARTERIAL; HCO3-(ACT) 20.9 mmoll (20.0-26.0); METHB 0.6 % (0.0-1.5); O2(CT) 15.4 mL/dL (15.0-23.0); O2HB 92.8 % (95.0-99.0); PCO2(98.6) 36 mmHg (35-45); PO2(98.6) 65 mmHg (60-100); SAMPLE BLOOD; THB 11.8 g/dL (11.5-17.4); pH(98.6) 7.35 (7.35-7.45)
[2018-05-25 05:57] LABS: MODALITY CANNULA
[2018-05-25 05:58] LABS: AGAP 13; BUN 17 mg/dL (8-22); CALCIUM 8.6 mg/dL (8.8-10.2); CHLORIDE 102 mmol/L (98-107); COSMO 277; CREATININE 1.1 mg/dL (0.7-1.2); ESTIMATED GFR > 60; GLUCOSE 203 mg/dL (70-104); MAGNESIUM 1.7 mg/dL (1.5-2.7); SODIUM 135 mmol/L (136-145); TCO2 20 mmol/L (25-35)
[2018-05-25 06:18] LABS: LYMPHS 3 % (21-51); MONO 6 % (1-9); SEGS 91 % (42-75)
[2018-05-25] MEDS: NS 1,000 ML IV SCH ×2 (06:30→16:16)
[2018-05-25] MEDS: HUMULIN R SUBQ SCH ×4 (06:31→22:05)
[2018-05-25] MEDS: SOLU-MEDROL IV SCH ×2 (08:39→22:04)
[2018-05-25] MEDS: PROTONIX IV SCH (08:39)
--- NOTE | 2018-05-25 10:01 | Diag Imaging Result Doc PS360 ---
CHEST-PORTABLE - 05/25/2018 INDICATION: pna, resp failure COMPARISON: 05/24/2018 FINDINGS: There is continued decrease in the density of the right basilar infiltrate. There is some worsening infiltrate or atelectasis at the left lung base. Stable significant cardiomegaly and pulmonary vascular congestion. No pleural effusion. IMPRESSION: Mixed changes, with overall no change from prior. Electronically signed by Levi Tidwell 05/25/2018 9:58 AM
--- NOTE | 2018-05-25 13:48 | PROGRESS NOTE ---
DATE: 05/25/2018 SUBJECTIVE: This patient's lab work is better, but he is complaining of severe shortness of breath today. He is tolerating p.o. He is not ambulating. As per the , this patient at home is able to move from the bed to the rest room, but he always gets short of breath, it is a chronic condition. He is not wheezing today, so I will decrease the dose of the steroids from 40 q.12 hours to 20 IV q.12 hours and hopefully tomorrow I will switch it to p.o. if the patient is better. Pulmonary Department and Infectious Disease Department are on board. OBJECTIVE: Vital Signs: Temperature 98.1, pulse 91, respiratory rate 14, blood pressure 145/112, oxygen saturation 91% on 4 L of nasal cannula. HEENT: Head normocephalic. No trauma. PERRLA. Neck: Supple. No JVD. No masses. Central trachea. Chest: Decreased breath sounds globally with prolonged expiratory phase. Decreased breath sounds, mostly at the level of the right base. No wheezing, rhonchi on the right base as well. Abdomen: Soft, nontender, nondistended. No hepatosplenomegaly. Obese. Extremities: No edema. No clubbing. No cyanosis. Neurological: The patient is alert and oriented x3. No focal deficits. LABORATORY: WBC 10.8, hemoglobin 11.2, hematocrit 34.6, platelets 148. Sodium 135, potassium 4, chloride 102, bicarbonate 20, BUN 17, creatinine 1.1, glucose 203, calcium 8.6, magnesium 1.7. ASSESSMENT AND PLAN: 1. Acute hypoxemic respiratory failure, likely secondary to pneumonia and history of chronic obstructive pulmonary disease. Will continue cycling the BiPAP machine and nasal cannula and/or Ventimask. Pulmonary Department on board. I think he is getting better even though he is still complaining of shortness of breath. 2. Sepsis secondary to pneumonia. Right lower lung pneumonia. Continue with broad-spectrum antibiotics, oxygen supplementation, pulmonary toilet and breathing treatment. 3. Right lower lobe pneumonia. As above. 4. Mild acute kidney injury resolved. We will continue avoiding nephrotoxic medication. 5. Urinary retention. Continue the Forrest catheter. 6. Type 2 diabetes. Continue with sliding scale insulin and pattern blood sugar. His hemoglobin A1c is actually 5.9, and elevated blood sugar is likely due to steroids which I will decrease today. 7. Obesity with a body mass index of 29.6, aware. 8. Hypogammaglobulinemia. IgG and IgM levels are low. Infectious Disease Department on board. I believe he already received a dose of IVIG. 9. Leukocytosis, likely secondary to the infectious process and steroid use, improving. cc: Edwar Morin MD
[2018-05-25] MEDS: LOVENOX SUBQ SCH (16:16)
[2018-05-26] MEDS: XOPENEX NEB INH SCH ×6 (00:14→19:30)
[2018-05-26] MEDS: MAXIPIME 2 GM in NS 100 ML IV SCH ×2 (01:51→14:23)
[2018-05-26] MEDS: NS 1,000 ML IV SCH ×3 (03:01→13:46)
[2018-05-26] MEDS: ZYVOX 600 MG/D5W 600 MG/300 ML IVPB IV SCH ×2 (03:01→16:39)
--- NOTE | 2018-05-26 03:52 | PULMONOLOGY PROGRESS NOTE ---
DATE: 05/25/2018 SUBJECTIVE: The patient is awake and alert. He is conversant. He is tolerating p.o. intake. He denies shortness of breath. He is currently on 4 L per nasal cannula. OBJECTIVE: HEENT: Pupils are equal and reactive. Oropharynx is clear. Neck: Supple. Chest: Reveals crackles at the right base. Cardiac: S1-S2. Abdomen: Soft, without hepatosplenomegaly. Extremities: Reveal trace edema. LABORATORIES: Chest x-ray reveals continued improvement at the right base. He has cardiomegaly, with some vascular congestion. Arterial blood gas reveals a pH 7.35, pCO2 of 36, PO2 of 65 on nasal cannula. White blood count 10.87, hemoglobin 11.2, platelet count 148,000. No new culture data. IMPRESSION: A 58-year-old with severe COPD, immunoglobulin deficiency, community-acquired pneumonia, acute hypoxemic respiratory failure. The patient continues to have clinical improvement. RECOMMENDATIONS: 1. Agree with immunoglobulin replacement, which has been performed. 2. Continue to cycle BiPAP if needed. 3. Continue antibiotics. 4. Continue bronchial hygiene. 5. Agree with transfer to the floor, which has been scheduled. cc: Benny Aguillon MD
[2018-05-26] MEDS: HUMULIN R SUBQ SCH ×4 (06:50→21:58)
[2018-05-26 06:55] LABS: BASO# 0.01 X1000 (0.0-0.2); BASO% 0.1 % (0.0-0.8); HEMATOCRIT 35.4 % (42.0-52.0); HEMOGLOBIN 11.6 g/dL (14.0-18.0); IMM GRAN# 0.05 X1000 (0.0-0.04); IMM GRAN% 0.5 % (0.0-0.5); LYMPH# 0.58 X1000 (1.2-3.4); LYMPH% 5.6 % (20.5-51.1); MCH 28.8 PG (27-31); MCHC 32.8 g/dL (33-37); MCV 87.8 FL (81-99); MONO# 0.67 X1000 (0.11-0.59); MONO% 6.5 % (1.7-9.3); MPV 12.3 FL (7.4-10.4); NEUT% 87.3 % (42.2-75.2); PLT 152 X1000 (130-400); RBC 4.03 XMIL (4.7-6.1); WBC 10.31 X1000 (4.8-10.8)
[2018-05-26 07:09] LABS: LYMPHS 12 % (21-51); SEGS 88 % (42-75)
[2018-05-26 07:16] LABS: AGAP 14; BUN 19 mg/dL (8-22); CALCIUM 7.9 mg/dL (8.8-10.2); CHLORIDE 103 mmol/L (98-107); COSMO 280; ESTIMATED GFR > 60; GLUCOSE 165 mg/dL (70-104); SODIUM 137 mmol/L (136-145); TCO2 20 mmol/L (25-35)
[2018-05-26] MEDS: PROTONIX IV SCH (09:17)
[2018-05-26] MEDS: SODIUM CHLORIDE 0.9% INJ SCH (09:18)
[2018-05-26] MEDS: SOLU-MEDROL IV SCH ×2 (09:18→21:58)
[2018-05-26] MEDS: LOVENOX SUBQ SCH (14:24)
--- NOTE | 2018-05-26 14:41 | PROGRESS NOTE ---
DATE: 05/26/2018 SUBJECTIVE: This patient is feeling better. He is still short of breath. He is tolerating p.o. He is not ambulating. As per the , this patient at home is able to move from just short distances and he always gets short of breath when he moves; this is a chronic condition. He is not wheezing today. I will continue with the same rate of the steroids and tomorrow will switch it to p.o. OBJECTIVE: Vital signs: Temperature 98.4 degrees, pulse 93, respiratory rate 20, blood pressure 155/73, oxygen saturation 96 on 4 L of nasal cannula. HEENT: Head normocephalic. No trauma. PERRLA. Neck: Supple. No JVD. No masses. Central trachea. Chest: Decreased breath sounds globally with prolonged expiratory phase. Decreased breath sounds mostly at the right base. No wheezing. Rhonchi at the right base as well. Abdomen: Soft, nontender, nondistended. No hepatosplenomegaly. Obese. Extremities: No edema. No clubbing. No cyanosis. Neurological: The patient is alert and oriented x3. His answers are slow but no focal deficits. LABORATORY: WBC 10.3, hemoglobin 11.6, hematocrit 35.4, platelets 152,000. Sodium 137, potassium 4, chloride 103, bicarbonate 20, BUN 19, creatinine 1, glucose 165, calcium 7.9, magnesium 1.9. ASSESSMENT AND PLAN: 1. Acute hypoxemic respiratory failure, likely secondary to pneumonia and history of chronic obstructive pulmonary disease. We will continue cycling the BiPAP machine and nasal cannula and/or Ventimask. Pulmonary Department on board. I think he is getting better even though he is still complaining of shortness of breath. 2. Sepsis secondary to pneumonia, right lower lobe pneumonia. Continue with broad spectrum antibiotics, oxygen supplementation, pulmonary toilet. He is breathing better. 3. Right lower lobe pneumonia. As above. 4. Mild acute kidney injury, resolved. We will avoid nephrotoxic medications. 5. Urinary retention. Continue Forrest catheter. 6. Type 2 diabetes. Continue with sliding scale insulin and pattern of blood sugar. His hemoglobin A1c is actually good at 5.9. The elevated blood sugar is likely due to steroids. 7. Obesity with a body mass index of 29.6. Aware. 8. Hypogammaglobulinemia. IgG and IgM were low. Infectious Disease Department on board and he already received IVIG. 9. Leukocytosis, likely secondary to infectious process and some steroids. Today it is normal. cc: Edwar Morin MD
--- NOTE | 2018-05-26 15:39 | Diag Imaging Result Doc PS360 ---
CHEST-1 VIEW - 05/26/2018 INDICATION: pneumonia COMPARISON: 05/25/2018 FINDINGS: There has been improvement in the faint bibasilar infiltrates. There is still some residual infiltrate particularly at the right lung base. Stable cardiomegaly and mild pulmonary vascular congestion. IMPRESSION: Improvement in the bibasilar infiltrates. Electronically signed by Levi Tidwell 05/26/2018 3:36 PM
[2018-05-26] MEDS ORDERED: LASIX IV ONE (17:40)
--- NOTE | 2018-05-26 18:22 | PULMONOLOGY PROGRESS NOTE ---
DATE: 05/26/2018 SUBJECTIVE: Patient is awake, alert and conversant. He is without new complaints. He does have a cough with some sputum production. OBJECTIVE: Vital Signs: The patient has been afebrile for the last 24 hours. Blood pressure 173/87, heart rate 87, respiratory rate 20, oxygen saturation 97% on 4 L per nasal cannula. HEENT: Pupils are equal and reactive. Oropharynx is clear. Neck: Supple. Chest: Reveals prolonged expiratory phase with scattered rhonchi. Cardiac: S1, S2. Abdomen: Soft and obese, with good bowel sounds. Extremities: Reveal trace to 1+ edema. LABORATORIES: White blood count 10.31, hemoglobin 11.6, platelet count 152,000. Sodium 137, potassium 4.0, chloride 103, bicarbonate 20, anion gap 14, BUN 19, creatinine 1.0. Chest x-ray reveals some improvement in the lung bases with cardiomegaly and pulmonary vascular congestion. IMPRESSION: A 58-year-old with severe COPD, immunoglobulin deficiency, community-acquired pneumonia, with acute hypoxemic respiratory failure. The patient overall continues to improve. He has received immunoglobulin replacement. RECOMMENDATION: 1. Discontinue IV fluids. Will give a single dose of Lasix with vascular congestion and cardiomegaly. 2. Continue to cycle BiPAP at bedtime and p.r.n. 3. Continue antibiotics and bronchial hygiene. cc: Benny Aguillon MD
[2018-05-27] MEDS: XOPENEX NEB INH SCH ×7 (00:01→23:19)
[2018-05-27] MEDS: MAXIPIME 2 GM in NS 100 ML IV SCH ×2 (02:30→13:25)
[2018-05-27] MEDS: ZYVOX 600 MG/D5W 600 MG/300 ML IVPB IV SCH ×2 (03:11→14:29)
[2018-05-27 06:51] LABS: BASO# 0.01 X1000 (0.0-0.2); BASO% 0.1 % (0.0-0.8); CALCIUM 8.4 mg/dL (8.8-10.2); CREATININE 1.3 mg/dL (0.7-1.2); HEMATOCRIT 36.9 % (42.0-52.0); LYMPH# 0.49 X1000 (1.2-3.4); MCH 28.2 PG (27-31); MCHC 32.5 g/dL (33-37); MCV 86.8 FL (81-99); MONO# 0.62 X1000 (0.11-0.59); MONO% 7.5 % (1.7-9.3); MPV 12.2 FL (7.4-10.4); NEUT% 86.4 % (42.2-75.2); PLT 157 X1000 (130-400); POTASSIUM 3.7 mmol/L (3.5-5.1); RBC 4.25 XMIL (4.7-6.1); WBC 8.22 X1000 (4.8-10.8)
--- NOTE | 2018-05-27 06:55 | Diag Imaging Result Doc PS360 ---
EXAM: CHEST-PORTABLE HISTORY: dyspnea TECHNIQUE: Portable chest single view COMPARISON: 05/26/2018 FINDINGS: The lungs are well expanded. No cardiomegaly. There is basilar atelectasis versus tiny infiltrates. The appearance is similar to the prior study. No pleural effusions identified. IMPRESSION: Stable chest. Electronically signed by Juan Aguilar 05/27/2018 6:53 AM
[2018-05-27] MEDS: HUMULIN R SUBQ SCH ×4 (07:38→21:57)
[2018-05-27] MEDS: SOLU-MEDROL IV SCH (08:45)
[2018-05-27] MEDS: PROTONIX IV SCH (08:46)
[2018-05-27] MEDS: SODIUM CHLORIDE 0.9% INJ SCH (08:46)
--- NOTE | 2018-05-27 13:02 | PROGRESS NOTE ---
DATE: 05/27/2018 SUBJECTIVE: The patient is feeling better. He is still complaining of shortness of breath. He is tolerating p.o. He is not ambulating, but as per the at home, he is able to move just for short distances and he always gets short of breath when he does any kind of physical activity. This is a chronic condition, but I will start physical therapy and occupational therapy today. I will stop completely the IV steroids and I will put this patient on p.o. prednisone. Pulmonary Department on board. OBJECTIVE: Vital Signs: Temperature 98.2, pulse 76, respiratory rate 16, blood pressure 161/85, oxygen saturation 97% on 4 L of nasal cannula. HEENT: Head normocephalic. No trauma. PERRLA. Neck: Supple. No JVD. No masses. Central trachea. Chest: Decreased breath sounds globally with prolonged expiratory phase, with some rhonchi at the right base. Abdomen: Soft, nontender, nondistended. No hepatosplenomegaly. Obese. Extremities: No edema. No clubbing. No cyanosis. Neurologic: Patient is alert and oriented and oriented x3. No focal deficits. LABORATORY: WBC 8.2, hemoglobin 12, hematocrit 36.9, platelet 157. Sodium 138, potassium 3.7, chloride 102, bicarbonate 24, BUN 19, creatinine 1.3, glucose 188, calcium 8.4, magnesium 1.9. ASSESSMENT AND PLAN: 1. Acute hypoxemic respiratory failure secondary to pneumonia and history of chronic obstructive pulmonary disease, continue the BiPAP machine and nasal cannula and/or Ventimask. Pulmonary Department on board. He is getting better, but he is still short of breath. Today, I will ask physical therapy to evaluate this patient. 2. Sepsis, secondary to pneumonia. Right lower lobe pneumonia. Continue with broad spectrum antibiotics, oxygen supplementation, pulmonary toilet. He is breathing better. 3. Right lower lobe pneumonia. As above. 4. Mild acute kidney injury, received a dose of Lasix yesterday and the creatinine increased a little bit compared with yesterday, but I believe the kidney function has been stable, will monitor. 5. Urinary retention. Continue with Forrest catheter. Upon admission, this patient was not voiding so we placed a Forrest catheter and we received at least more than 1 L of urine. I am not quite sure if he had this kind of problem before, but for now, we will continue with the Forrest catheter and probably we need to remove that Forrest before sending this patient home to see if he is able to void by himself. 6. Type 2 diabetes. Continue with pattern blood sugar and sliding scale insulin. Hemoglobin A1c is actually good at 5.9. His elevated blood sugar is likely secondary to steroids. 7. Obesity with a body mass index of 29.6, aware. 8. Hypogammaglobulinemia. IgG and IgM were low. Infectious department already evaluated this patient and this patient received IVIG. 9. Leukocytosis. Resolved. 10. Physical deconditioning and generalized weakness. I have requested an evaluation by physical therapy and occupational therapy for this patient. cc: Edwar Morin MD
[2018-05-27] MEDS: LOVENOX SUBQ SCH (13:24)
--- NOTE | 2018-05-27 20:09 | INFECTIOUS DISEASE PROGRESS NO ---
DATE: 05/27/2018 PRESENT ILLNESS: The patient has a bibasilar pneumonia and an immunoglobulin deficiency. MEDICATIONS: This is the 5th day of treatment with a combination of cefepime and Zyvox. PHYSICAL EXAMINATION: Vital Signs: Temperature is 99, pulse 72, respirations 20, blood pressure 157/73. General: This is an obese, middle-aged male. He is fully awake and he is in no acute distress. HEENT: He can hear my spoken words and see near objects. He does not have any white patches on his tongue. Neck: No stiffness. Thorax: The patient has an increased AP diameter of the chest. Lungs: Clear to auscultation. Cardiovascular: Heart rate is regular. Abdomen: Soft and nontender. Neurologic: Patient is alert. He can move his extremities. There is no tremor. Integument: No rash noted. LAB AND X-RAY: Chest x-ray shows stable bibasilar infiltrates. Sputum grew normal deb. Swab for influenza was negative. Creatinine is 1.3 GFR is 56. CBC shows a white count of 8220, hemoglobin 12, and platelet count 157,000. ASSESSMENT AND PLAN: Patient has a bibasilar pneumonia. He also has a very low IgG level. I plan to continue his antibiotics. The patient has had IVIG during this admission and I will repeat his immunoglobulin levels for 6 to 8 weeks from now to see if the IgG level has fallen again. COMORBIDITIES: The patient has severe COPD. He also has diabetes mellitus. He is obese and he has schizophrenia. cc: Jose Cruz Hall MD
--- NOTE | 2018-05-27 20:44 | PULMONOLOGY PROGRESS NOTE ---
DATE: 05/27/2018 SUBJECTIVE: Patient is awake, alert, and conversant. He reports he is having a good day. His cough effort continues to improve. OBJECTIVE: Vital signs: The patient has been afebrile for the last 24 hours. Blood pressure 157/73, heart rate 72, respiratory rate 20, oxygen saturation 94% on 4 L per nasal cannula. HEENT: Pupils are equal and reactive. Oropharynx is clear. Neck: Supple. Chest: Reveals prolonged expiratory phase with occasional rhonchi. Cardiac: S1, S2. Abdomen: Obese and soft. Extremities: Without edema. DIAGNOSTIC STUDIES: Chest x-ray revealed residual infiltrates without change. IMPRESSION: A 58-year-old with: 1. Severe chronic obstructive pulmonary disease. 2. Immunoglobulin deficiency. 3. Community-acquired pneumonia with acute hypoxemic respiratory failure. Clinically, he continues to improve. RECOMMENDATION: 1. Steroid weaning, as you are doing. 2. Initiate physical therapy. 3. Recommend discontinuing patient's Forrest now that he has improved to see if he can void. 4. Continue oxygen for hypoxemic respiratory failure. cc: Benny Aguillon MD
[2018-05-28] MEDS: MAXIPIME 2 GM in NS 100 ML IV SCH ×2 (02:45→13:40)
[2018-05-28] MEDS: XOPENEX NEB INH SCH ×6 (03:50→23:32)
[2018-05-28] MEDS: ZYVOX PO SCH ×3 (05:10→20:13)
[2018-05-28] MEDS: HUMULIN R SUBQ SCH ×4 (06:17→22:46)
[2018-05-28 07:42] LABS: AGAP 13; BUN 20 mg/dL (8-22); CALCIUM 7.9 mg/dL (8.8-10.2); CHLORIDE 101 mmol/L (98-107); COSMO 278; CREATININE 1.1 mg/dL (0.7-1.2); ESTIMATED GFR > 60; GLUCOSE 100 mg/dL (70-104); MAGNESIUM 2.1 mg/dL (1.5-2.7); PHOSPHORUS 3.3 mg/dL (2.7-4.5); POTASSIUM 3.4 mmol/L (3.5-5.1); SODIUM 138 mmol/L (136-145); TCO2 24 mmol/L (25-35)
[2018-05-28] MEDS: SODIUM CHLORIDE 0.9% INJ SCH (09:28)
[2018-05-28] MEDS: PROTONIX IV SCH (09:28)
[2018-05-28] MEDS: PREDNISONE PO SCH (09:28)
[2018-05-28] MEDS: LOVENOX SUBQ SCH (12:46)
--- NOTE | 2018-05-28 16:16 | PROGRESS NOTE ---
DATE: 05/28/2018 SUBJECTIVE: Patient reports breathing better. Patient reports also walking with physical therapy 50 feet and denies any other complaints. OBJECTIVE: Vital Signs: Temperature 98.3 degrees, heart rate 89, respiratory rate 20, blood pressure 131/73 O2 saturation 95% on 4 L nasal cannula. General Examination: This is a chronically ill-looking, 58-year-old male, lying in bed, in no acute distress. HEENT: Head is normocephalic, atraumatic. Neck: No JVD noted. No carotid bruits. No lymphadenopathy. Cardiovascular: S1, S2 heard. No murmurs, gallops, or rubs. Regular rate and rhythm. Respiratory: Decreased breath sounds globally with prolonged respiratory phase and rhonchi in right base. Patient is not using any accessory muscles or having work of breathing. Abdomen: Soft. Nontender to palpation. Bowel sounds present. No organomegaly. Extremities: No clubbing, cyanosis, or edema. Peripheral pulses present in both legs. Neurological: The patient is alert and oriented x3. Moves 4 extremities. LABORATORY DATA: White count 8.22, hemoglobin 12.0, hematocrit 36.9, platelets 157,000. Normal BMP. ASSESSMENT AND PLAN: 1. Acute hypoxemic respiratory failure secondary to pneumonia/chronic obstructive pulmonary disease. The patient is breathing better requiring now 4 L of oxygen by nasal cannula. The patient is receiving breathing treatments as well. We will continue with the same management. 2. Sepsis secondary to right lower lobe pneumonia. Patient is on Zyvox day 1, as per Infectious disease, on cefepime day 6. The reason why this patient has been changed to Zyvox is because he was on vancomycin and renal function was not getting better. We will continue with same management. 3. Mild acute kidney injury, resolved. 4. Urinary retention. Patient is on Forrest catheter. We will continue with the same plan. 5. Diabetes mellitus type 2. We will continue with sliding scale insulin and Accu-Cheks before meals and also at bedtime. A1c is very good to 5.9, we will continue with the same management. 6. Hypogammaglobinemia. We are going to continue to replete both as per ID recommendations 7. Physical deconditioning. The patient is working with physical therapy. DISPOSITION: I think at this time, patient is getting better. We will talk with Dr. Hall tomorrow to see if from his standpoint patient can be discharged. Regarding disposition will talk with physical therapy to see if she qualifies to go home with home health or he has to go to a rehab facility. cc: Jose Ayoub MD
--- NOTE | 2018-05-28 18:41 | INFECTIOUS DISEASE PROGRESS NO ---
DATE: 05/28/2018 PRESENT ILLNESS: Mr. Crowe is being treated for bibasilar pneumonia. He also has an immunoglobulin deficiency with low IgG. MEDICATIONS: Today is day 6 of cefepime 2 g IV every 12 hours and Zyvox 600 mg p.o. every 12 hours. PHYSICAL EXAMINATION: Vital Signs: Temperature is 98.3, pulse rate 89, respiratory rate 24, blood pressure 123/73, O2 sat is 98% on 4 L nasal cannula. General: This is a chronically ill- appearing middle-aged gentleman. He is lying in the bed currently in no acute distress. HEENT: Atraumatic, normocephalic. Oral mucous membranes are pink and moist. Conjunctivae are pink. Neck: Supple. Trachea is midline. Cardiovascular: Heart rate and rhythm are regular. Normal sinus rhythm on the monitor. Pedal and radial pulses are palpable bilaterally. Respiratory: Lung sounds are bilaterally diminished. Abdomen: Soft, obese and nontender. Bowel sounds are active. Neurologic: He is awake, alert and oriented. He is able to move around in the bed with some weakness. He states he ambulated 53 feet today. LABORATORY AND X-RAY: Today his creatinine is 1.1. Estimated GFR is greater than 60. No CBC available. No imaging reports today. ASSESSMENT AND PLAN: Mr. Crowe has bibasilar pneumonia. He states he is feeling somewhat better today, but is not sure whether he wants to go home yet or not. He does have physical therapy and occupational therapy at home, with home health care. We will continue his cefepime and Zyvox as ordered for now. In 6 to 8 weeks we will need to repeat his immunoglobulin levels to see if his deficiency is a chronic problem. These plans have been discussed with and recommended by Dr. Hall. COMORBIDITIES: For Mr. Crowe include diabetes mellitus, COPD and physical deconditioning. Dictated by AJITH Bryson for Jose Cruz Hall MD This chart was documented by, AJITH Bryson and accurately reflects the services performed, treatment plan and medical decisions as attested by the providers signature Jose Cruz Hall MD. cc: Jose Cruz Hall MD [facility]
--- NOTE | 2018-05-28 22:39 | PULMONOLOGY PROGRESS NOTE ---
DATE: 05/28/2018 SUBJECTIVE: The patient is awake, alert, and sitting in a chair. He reports his breathing continues to improve. OBJECTIVE: Vital signs: He has been afebrile for the last 24 hours. Blood pressure 114/72, heart rate 85, respiratory rate 20, oxygen saturation 100%. HEENT: Pupils are equal and reactive. Oropharynx is clear. Neck: Supple. Chest: Reveals occasional rhonchi bilaterally with prolonged expiratory phase. Cardiac exam: S1, S2. Abdomen: Obese and soft and without hepatosplenomegaly. Extremities: Without edema. IMPRESSION: A 58-year-old with: 1. Severe chronic obstructive pulmonary disease. 2. Community-acquired pneumonia. 3. Immunoglobulin deficiency. 4. Acute hypoxemic respiratory failure. PLAN: 1. Continue physical therapy. 2. Continue antibiotics and immunoglobulin replacement as outlined by the infectious disease progress note. 3. Discontinue Forrest to evaluate the patient's voiding ability. 4. Wean oxygen as tolerated. 5. Obtain 2-view followup chest x-ray tomorrow morning. cc: Benny Aguillon MD
[2018-05-29] MEDS: MAXIPIME 2 GM in NS 100 ML IV SCH (02:49)
[2018-05-29] MEDS: XOPENEX NEB INH SCH ×3 (04:20→11:38)
[2018-05-29] MEDS: HUMULIN R SUBQ SCH ×2 (06:21→11:56)
--- NOTE | 2018-05-29 07:33 | Diag Imaging Result Doc PS360 ---
EXAM: CHEST-2 VIEWS 05/29/2018 HISTORY: pneumonia TECHNIQUE: PA and lateral chest COMMENT: There is atelectasis of the right middle lobe which was not appreciable on 05/27/2018. The left lung base appears clearer than it did. There is also some platelike atelectasis in the right lower lobe which was not previously present. IMPRESSION: Right middle lobe and lower lobe atelectasis versus pneumonia. Electronically signed by Benedict Street 05/29/2018 7:31 AM
[2018-05-29] MEDS: ZYVOX PO SCH (08:28)
[2018-05-29] MEDS: SODIUM CHLORIDE 0.9% INJ SCH (08:29)
[2018-05-29] MEDS: PROTONIX IV SCH (08:29)
[2018-05-29] MEDS: PREDNISONE PO SCH (08:29)
--- NOTE | 2018-05-29 11:00 | INFECTIOUS DISEASE PROGRESS NO ---
DATE: 05/29/2018 PRESENT ILLNESS: The patient has a bilateral pneumonia. He also has been discovered to have an immunoglobulin deficiency as well. MEDICATIONS: This is day 7 of treatment with cefepime and Zyvox. PHYSICAL EXAMINATION: Vital Signs: Temperature is 98 degrees, pulse 95, respirations 22, blood pressure 144/89. General: This is a somewhat ill-appearing, middle-aged male. He is in no acute distress. Head, eyes, ears, nose, and throat: He can hear my spoken words and see near objects. There is no white coating to his tongue. Neck: No meningismus. Lungs: Clear to auscultation. Cardiovascular: Regular heart rate. Abdomen: Slightly protuberant, but soft and nontender. Neurologic: Patient is awake. He can move his extremities. There is no tremor. LABORATORY AND X-RAY STUDIES: Chest x-ray shows bilateral pneumonia versus atelectasis. There are no laboratory tests from today. ASSESSMENT AND PLAN: 1. Patient has a bibasilar pneumonia. He is feeling much better and he wants to go home today. I am sending the patient home on a combination of Ceftin 500 mg p.o. every 12 hours and doxycycline 100 mg p.o. every 12 hours for 10 more days. The patient will have an appointment in my office also in 10 days. At that time he will be examined and the chest x-ray will be repeated. Patient also has an immunoglobulin deficiency. In about 6 weeks, we will repeat the patient's immunoglobulin levels to see if they are back up in the normal range or if they are low. If they are low, then the patient will have 2 separate times when he had low immunoglobulin levels specifically IgG and I think given that he has had infections, he would be a candidate to be given immunoglobulin on a regular basis, namely once every month. 2. Comorbidities: Diabetes mellitus, chronic obstructive pulmonary disease, and physical deconditioning. cc: Jose Cruz Hall MD
[2018-05-29 11:49] VITALS: BP 147/65
[2018-05-29] MEDS: LOVENOX SUBQ SCH (12:35)
--- NOTE | 2018-05-29 14:25 | DISCHARGE SUMMARY ---
ADMISSION DATE: 05/22/2018 DISCHARGE DATE: 05/29/2018 CONSULTATIONS: 1. Dr. Aguillon with pulmonology. 2. Dr. Jose Cruz Hall with Infectious Disease. PERTINENT PROCEDURES: 1. Pulmonary arteriogram: COPD changes, airspace consolidation involving the right lower lung zone that is more severe in the right middle lobe indicating pneumonia. No evidence of PE. 2. Final chest x-ray: Right middle lobe and lower lobe atelectasis versus pneumonia. DISCHARGE DIAGNOSES: 1. Acute hypoxemic respiratory failure secondary to pneumonia and chronic obstructive pulmonary disease (COPD), improved. He will continue with his home O2. 2. Bibasilar pneumonia. The patient was followed by Infectious Disease and will be sent home on a combination of Ceftin and doxycycline. He will follow up with Dr. Hall in 10 days, and we will re-examine his chest x-ray. 3. Immunoglobulin deficiency. Dr. Hall feels with his IgG being low he would be a candidate for infusions every month. 4. Sepsis secondary to right lower lobe pneumonia. See numbers 1 and 2. 5. Mild acute kidney injury, resolved. 6. Urinary retention, improved. 7. Diabetes mellitus, type 2. Continue home regimen. Hemoglobin A1c was 5.9. 8. Physical deconditioning. Patient has been working with physical therapy. He has chosen to return back home with his and home health. HOSPITAL COURSE: Briefly, Mr. Crowe is a 58-year-old gentleman who had recently been admitted to our service in December of last year. At that time, he had a spontaneous pneumothorax and acute respiratory failure requiring intubation. He also carries a past medical history of COPD on home O2, type 2 diabetes, and hypertension. He had been in his normal state of health until the day of this admission. He woke up with acute shortness of breath. He was brought into the ED. He was noted to be febrile, tachycardic, and hypoxic. He was placed on BiPAP. Chest x -ray revealed a right middle lobe and lower lobe pneumonia. His lactic acid was elevated, meeting criteria for sepsis. He was initially admitted and treated for acute hypoxemic respiratory failure, as well as sepsis secondary to his pneumonia. He was started on broad-spectrum antibiotics. Lon cultured. Consult Pulmonology as well as Infectious Disease. He was also found to have renal globulin deficiency with a low IgG. He did have an IVIG infusion during this admission and will continue to follow his levels with Dr. Hall. He has been working with physical therapy and occupational therapy and will be discharged back home with home health. VITAL SIGNS: Temperature is 98.1 degrees, heart rate 84, respirations 20, blood pressure 147/65, O2 is 100% on 3 L nasal cannula. DISCHARGE DIET: Diabetic. DISCHARGE MEDICATIONS: 1. Cogentin 1 mg p.o. daily. 2. Symbicort 160/4.5 mcg inhaled b.i.d. 3. Lasix 20 mg p.o. daily. 4. Icar C 1 each p.o. daily. 5. Multivitamin 1 each p.o. daily. 6. Zyprexa 20 mg p.o. daily. 7. Prilosec 20 mg p.o. b.i.d. 8. Prednisone 5 mg p.o. daily. 9. Crestor 20 mg p.o. daily. 10. Carafate 1 g p.o. 4 times a day. 11. Flomax 0.4 mg p.o. b.i.d. 12. Spiriva 1 puff inhaled daily. 13. Ceftin 500 mg p.o. q.12 h. 14. Doxycycline 100 mg p.o. q.12 h. DISPOSITION: Mr. Crowe is being discharged back home with his and home health. DISCHARGE INSTRUCTIONS: He will continue on his supplemental O2, as well as his DME with [facility]. He is to take all antibiotics as prescribed. He is to follow up with Dr. Hall in 10 days, and we will recheck a repeat chest x-ray and continue to monitor his immunoglobulin levels. He may be a candidate for monthly infusions if this is a chronic issue. He can return to the ED or call 911 for any worsening of symptoms. Dictated by AJITH Sparks for Jose Ayoub MD Addendum: Patient seen and examined by myself. Agree with AJITH note. It reflects my assessment and plan. Patient is being discharged in stable condition to home with home health. Antibiotics as per ID recommendations and will be seen by Dr. Hall in a week. cc: MD Levi Abraham Jr, MD Benny Garrido MD MTDD
--- NOTE | 2018-05-30 01:13 | PULMONOLOGY PROGRESS NOTE ---
DATE: 05/29/2018 SUBJECTIVE: The patient is awake, alert, and conversant. He reports he is doing well, with plans for going home today. He is tolerating p.o. intake. He has returned to his baseline. OBJECTIVE: Vital Signs: Blood pressure 144/89, heart rate 95, respiratory rate 22, oxygen saturation 95% on 3 L per nasal cannula. HEENT: Pupils are equal and reactive. Oropharynx is clear. Neck: Supple. Chest: Reveals prolonged expiratory phase, without wheezing or rhonchi. Cardiac: S1-S2. Abdomen: Soft, and without hepatosplenomegaly. Extremities: Reveal trace edema. LABORATORIES: Chest x-ray reveals minor atelectasis in the middle lobe, with apparent improvement over the last 24 hours. Microbiology reveals no new data. No chemistries or CBCs today. IMPRESSION: A 58-year-old with severe chronic obstructive pulmonary disease, community-acquired pneumonia, immunoglobulin deficiency, and acute respiratory failure. The patient continues to improve. RECOMMENDATIONS: 1. Agree with discharge today. 2. Continue outpatient antibiotics per Infectious Disease. 3. Agree with followup immunoglobulin level in the future. cc: Benny Aguillon MD
== END 2018-05-29 14:05 | disposition home health service (06) | DRG 871 ==
LOC: SUPCPDRO → ED 08:03 → EDIPHOLD 11:10 → SUATTDRO 11:10 → 3S 05-23 20:05 → 4N 05-25 13:36
PROVIDERS: ATTEND Internal Medicine
CPT/HCPCS: 51702; 71010; 71020; 71045; 71046; 71275; 80048; 80053; 81001; 82784; 82805; 82948; 83036; 83605; 83735; 83880; 84100; 84484; 85025; 85379; 85610; 85730; 87040; 87070; 87205; 87275; 87276; 87804; 93005; 94640; 94761; 94762; 94799; 96365; 96366; 96367; 96372; 96375; 96376; 97162; 97530; 99285; A9270; C9113; J0692; J1561; J1650; J1940; J1956; J2020; J2060; J2543; J2930; J3370; J7030; J7040; J7506; J7512; Q9967; S0164; XXXXX